=== PATIENT | female | born 1995 | race Two or more races ===

== ENCOUNTER 2016-10-10 18:35 | Emergency (ER) | payer SELFPAY ==
[~2016-10-10] VITALS: Ht 144.8 cm; Wt 49.9 kg
[2016-10-10] MEDS ORDERED: SODIUM CHLORIDE 0.9% 1,000 ML IV ONE (19:20)
[2016-10-10 20:00] LABS: Basophils # (auto) 0 uL; Basophils % (auto) 0.3 % (0.0-2.0); Eosinophils # (auto) 0.1 uL; Eosinophils % (auto) 0.9 % (0.0-7.0); Hematocrit 38.8 % (36.0-46.0); Hemoglobin 12.4 g/dL (12.2-16.2); Lymphocytes # (auto) 1.6 uL; Lymphocytes % (auto) 20.4 % (10.0-50.0); Mean Corpuscular Hemoglobin 29.4 pg (28.0-32.0); Mean Corpuscular Hgb Conc. 31.8 g/dL (32.0-36.0); Mean Corpuscular Volume 92.3 fL (80.0-100.0); Mean Platelet Volume 8.8 fL (7.4-10.4); Monocytes # (auto) 0.5 uL; Neutrophils # (auto) 5.8 uL; Neutrophils % (auto) 72.4 % (37.0-80.0); Platelet Count (auto) 252 10^3/uL (140-450)
[2016-10-10 20:39] LABS: Potassium 3.4 mmol/L (3.5-5.1)
[2016-10-10 20:45] LABS: Albumin 3.1 g/dL (3.4-5.0); BUN/Creatinine Ratio 16.7; Bilirubin, Total 0.2 mg/dL (0.2-1.0); Calcium 8.1 mg/dL (8.5-10.1); Total Protein 7.2 g/dL (6.4-8.2)
[2016-10-10 20:47] LABS: Urine RBC None Seen /hpf (0 - 4)
[2016-10-10 21:03] LABS: Urine Bilirubin Negative (Negative); Urine Blood Negative /uL (Negative); Urine Color Yellow (Yellow); Urine Glucose Normal (Normal); Urine Ketone Negative (Negative); Urine Mucus MODERATE (None Seen); Urine Nitrite Negative (Negative); Urine Squamous Epithelial Cell FEW /hpf (<5); Urine Urobilinogen Normal (Negative); Urine pH 7.5 (5.0-8.0)
[2016-10-10] MEDS ORDERED: PROMETHAZINE HCL 25 MG/ML 1ML IV ONE (21:15)
[2016-10-10] MEDS ORDERED: ACETAMINOPHEN 325 MG TAB PO ONE ×2 (21:51→22:00)
[2016-10-10 23:51] VITALS: BP 83/47
== END 2016-10-11 01:34 | disposition home or self-care (01) ==
LOC: ER 18:44
DX: R11.10 Vomiting, unspecified (principal)
CPT/HCPCS: 36415; 76805; 80053; 81001; 84702; 85025; 96360; 99285; J7030

== ENCOUNTER 2018-08-04 11:18 | Emergency (ER) | payer MEDICAID ==
[~2018-08-04] VITALS: Ht 149.9 cm; Wt 59.0 kg
[2018-08-04 12:18] VITALS: BP 112/60
== END 2018-08-04 13:34 | disposition home or self-care (01) ==
LOC: ER 11:18
DX: S80.01XA Contusion of right knee, initial encounter (principal); V87.8XXA Person injured in other specified noncollision transport accidents involving motor vehicle (traffic), initial encounter; Y93.55 Activity, bike riding; Y92.828 Other wilderness area as the place of occurrence of the external cause; Y99.8 Other external cause status

== ENCOUNTER 2019-04-28 18:51 | Emergency (ER) | payer MEDICAID ==
[~2019-04-28] VITALS: Ht 154.9 cm; Wt 68.0 kg
[2019-04-28 18:58] VITALS: BP 98/66
[2019-04-28] MEDS ORDERED: ACETAMINOPHEN/CODEINE#3 (300/30mg) TAB PO ONE (20:15)
[2019-04-28] MEDS ORDERED: methylPREDNISolone SOD SUCC 125 MG/2 ML VL IM ONE (20:15)
[2019-04-28] MEDS ORDERED: cefTRIAXone SOD 1,000 MG VL IM ONE (20:15)
== END 2019-04-28 20:53 | disposition home or self-care (01) ==
LOC: EDBD 18:51 → ER 18:55
DX: J06.9 Acute upper respiratory infection, unspecified (principal); J02.9 Acute pharyngitis, unspecified
CPT/HCPCS: 96372; 99283; J0696; J2930